=== PATIENT | female | born 1975 ===

== ENCOUNTER 2016-12-08 04:11 | Emergency (ER) | payer BC ==
[~2016-12-08] VITALS: Ht 175.3 cm; Wt 94.8 kg
[2016-12-08 04:15] VITALS: BP 140/79
[2016-12-08] MEDS ORDERED: TRANEXAMIC ACID 1,000 MG/10 ML VIAL. TOP ONE (05:30)
--- NOTE | 2016-12-08 06:14 | PHYS DOC ---
Past Medical History Past Medical History: Anemia, Fibromyalgia, Other Additional Past Medical Histor: polymyosis,thrombocytopenia,lymphedema, congenital asplenia,triple xsyndrome Past Surgical History: No Surgical History Alcohol Use: Occasionally Drug Use: None Adult General Chief Complaint Chief Complaint: DENTAL PROBLEM HPI HPI Patient is a 41 year old female who presents with bleeding after dental extraction. The patient states she had a tooth extraction yesterday by Dr. Willson. Reports onset of bleeding 3 hours prior to arrival. Tried applying vasoconstrictive strict of spray and biting down on teabags and applying pressure. Bleeding continued. She has history of lupus with thrombocytopenia, reports platelets usually 39. Denies any other bleeding at this time. Review of Systems Review of Systems Constitutional: Denies fever or chills HENT: Reports dental pain and bleeding. Respiratory: Denies cough or shortness of breath Cardiovascular: Denies chest pain GI: Denies abdominal pain, nausea, vomiting Musculoskeletal: Denies back pain or joint pain Integument: Denies rash Neurologic: Denies headache Current Medications Current Medications Current Medications Medications (Trade) Dose Ordered Sig/La Start Time Stop Time Status Last Admin Dose Admin Tranexamic Acid (Cyklokapron) 1,000 mg 1X ONCE 12/08/16 05:30 12/08/16 05:31 DC 12/08/16 05:29 1,000 MG Allergies Allergies Allergies Coded Allergies Type Severity Reaction Last Updated Verified [place] And Derivatives Allergy Intermediate 12/08/16 Yes NSAIDS (Non-Steroidal Anti-Inflamma Allergy Intermediate 12/08/16 Yes aspirin Allergy Intermediate 12/08/16 Yes bilberry Allergy Intermediate 12/08/16 Yes hydrocodone Allergy Intermediate 12/08/16 Yes hydroxychloroquine Allergy Intermediate 12/08/16 Yes ibuprofen Allergy Intermediate 12/08/16 Yes lisinopril Allergy Intermediate 12/08/16 Yes oregano Allergy Intermediate 12/08/16 Yes oxycodone Allergy Intermediate 12/08/16 Yes poppyseed oil Allergy Intermediate 12/08/16 Yes quinine Allergy Intermediate 12/08/16 Yes silver Allergy Intermediate 12/08/16 Yes tomato Allergy Intermediate 12/08/16 Yes walnut Allergy Intermediate 12/08/16 Yes Physical Exam Physical Exam Constitutional: Well developed, well nourished, no acute distress, non-toxic appearance. HENT: Normocephalic, atraumatic, bilateral external ears normal, oropharynx moist, nose normal. large amount of dried blood throughout the oropharynx. absence of tooth #3 with clot formation & small amount of ongoing bleeding. Eyes: conjunctiva normal, no discharge. Cardiovascular: no edema. Lungs & Thorax: no respiratory distress. Abdomen: nondistended. Skin: Warm, dry, no erythema, no rash. Extremities: No deformity Neurologic: Alert and oriented X 3 Current Patient Data Vital Signs Vital Signs Date Time Temp Pulse Resp B/P (MAP) Pulse Ox O2 Delivery O2 Flow Rate FiO2 12/08/16 04:15 97.7 70 18 98 Room Air 97.7 EKG EKG [] Radiology/Procedures Radiology/Procedures [] Course & Med Decision Making Course & Med Decision Making Pertinent Labs and Imaging studies reviewed. (See chart for details) The patient presents with bleeding after dental extraction. Applied tea bag without change in her symptoms. There was a delay in obtaining TXA from the pharmacy but ultimately the RN applied the entire syringe to gauze & held with direct pressure. Ultimately hemostasis was achieved. Her stay lasted several hours while we attempted to control the bleeding. I did discuss with Dr. Tuttle industrial relations officer for Dr. Willson, & he recommends that she be seen this morning in clinic. May arrive at 0745 to be seen at 0800. Okay to just pack with gauze if bleeding recurs before that time. Patient understands plan & is discharged in stable condition. [] Dragon Disclaimer Dragon Disclaimer This electronic medical record was generated, in whole or in part, using a voice recognition dictation system. Departure Departure Impression: Primary Impression: Surgical wound hemorrhage after dental procedure Disposition: 01 HOME, SELF-CARE Condition: STABLE Referrals: GERRY MACK MD (PCP) ARELY WILLSON Jr DDS Patient Instructions: Dental Pain, [id number] Additional Instructions: You seen in the emergency department today for dental bleeding. The bleeding was controlled here. Please go to Dr. Willson's office at 7:45 this morning to be seen in the clinic. NICHOLAS RAMIREZ MD Dec 08, 2016 06:14
== END 2016-12-08 06:50 | disposition home or self-care (01) ==
LOC: ER 04:11
DX: K91.840 Postprocedural hemorrhage of a digestive system organ or structure following a digestive system procedure (principal); M32.9 Systemic lupus erythematosus, unspecified; M79.7 Fibromyalgia; D69.6 Thrombocytopenia, unspecified; Z88.6 Allergy status to analgesic agent; Z88.5 Allergy status to narcotic agent; Z91.018 Allergy to other foods; Z88.8 Allergy status to other drugs, medicaments and biological substances; Z91.048 Other nonmedicinal substance allergy status; Y83.8 Other surgical procedures as the cause of abnormal reaction of the patient, or of later complication, without mention of misadventure at the time of the procedure; Y92.89 Other specified places as the place of occurrence of the external cause
CPT/HCPCS: 99283

== ENCOUNTER 2016-12-10 23:25 | Inpatient (IN) | payer BC ==
[~2016-12-10] VITALS: Ht 175.3 cm; Wt 95.7 kg
[2016-12-11] VITALS (8 sets, daily range): BP systolic 102–143; BP diastolic 52–69
[2016-12-11] MEDS ORDERED: IV NORMAL SALINE 1000ML BAG 1,000 ML IV ONE (01:00)
[2016-12-11 01:06] LABS: BASO # 0.1 x10^3/uL (0.0-0.2); BASO % 1 % (0-3); EOS % 3 % (0-3); HEMATOCRIT 27.5 % (36.0-47.0); LYMPH # 2.9 x10^3/uL (1.0-4.8); LYMPH % 48 % (24-48); MEAN CORPUSCULAR HEMOGLOBIN 33 pg (25-35); MEAN CORPUSCULAR HGB CONC 33 g/dL (31-37); MEAN CORPUSCULAR VOLUME 100 fL (79-100); MONO % 12 % (0-9); NEUT % 36 % (31-73); PLATELET COUNT 48 x10^3/uL (140-400); RED BLOOD COUNT 2.76 x10^6/uL (3.50-5.40)
[2016-12-11 01:13] LABS: INR 1.1 (0.8-1.1); PROTHROMBIN TIME PATIENT 13.4 SEC (11.7-14.0)
[2016-12-11 01:18] LABS: CALCIUM 10.8 mg/dL (8.5-10.1); GFR 60.5; POTASSIUM 3.3 mmol/L (3.5-5.1)
--- NOTE | 2016-12-11 03:14 | PHYS DOC ---
Past Medical History Past Medical History: Anemia, Fibromyalgia, Other Additional Past Medical Histor: polymyosis,thrombocytopenia,lymphedema, congenital asplenia,triple xsyndrome Past Surgical History: No Surgical History Alcohol Use: Occasionally Drug Use: None Adult General Chief Complaint Chief Complaint: DENTAL PROBLEM HPI HPI Patient is a 41 year old female who presents with complaint of postoperative bleeding. Patient states that she had a molar extraction 4 days ago. Patient has had intermittent bleeding from the site since her extraction. This was completed at [facility]. The patient has history of thrombocytopenia and states that her platelet counts are normally 30,000. Patient states that she has been applying pressure to the area which helps form a clot, however when she tries to drink anything she starts having rebleeding. Patient states that she is had decreased oral intake due to the bleeding. The patient does not currently follow with a front attendant. The patient came to the emergency department for evaluation and assistance with her bleeding. Patient denies any pain or swelling to the surgical site. Patient has had no associated fevers. Review of Systems Review of Systems Constitutional: Denies fever or chills [] Eyes: Denies change in visual acuity, redness, or eye pain [] HENT: Bleeding from tooth extraction site [] Respiratory: Denies cough or shortness of breath [] Cardiovascular: Denies chest pain or edema [] GI: Denies abdominal pain, nausea, vomiting, bloody stools or diarrhea [] : Denies dysuria or hematuria [] Musculoskeletal: Denies back pain or joint pain [] Integument: Denies rash or skin lesions [] Neurologic: Denies headache, focal weakness or sensory changes [] Current Medications Current Medications Current Medications Medications (Trade) Dose Ordered Sig/La Start Time Stop Time Status Last Admin Dose Admin Sodium Chloride 1,000 ml @ 1,000 mls/hr 1X ONCE 12/11/16 01:00 12/11/16 01:59 DC 12/11/16 00:54 1,000 MLS/HR Allergies Allergies Allergies Coded Allergies Type Severity Reaction Last Updated Verified [place] And Derivatives Allergy Intermediate 12/08/16 Yes NSAIDS (Non-Steroidal Anti-Inflamma Allergy Intermediate 12/08/16 Yes aspirin Allergy Intermediate 12/08/16 Yes bilberry Allergy Intermediate 12/08/16 Yes hydrocodone Allergy Intermediate 12/08/16 Yes hydroxychloroquine Allergy Intermediate 12/08/16 Yes ibuprofen Allergy Intermediate 12/08/16 Yes lisinopril Allergy Intermediate 12/08/16 Yes oregano Allergy Intermediate 12/08/16 Yes oxycodone Allergy Intermediate 12/08/16 Yes poppyseed oil Allergy Intermediate 12/08/16 Yes quinine Allergy Intermediate 12/08/16 Yes silver Allergy Intermediate 12/08/16 Yes tomato Allergy Intermediate 12/08/16 Yes walnut Allergy Intermediate 12/08/16 Yes Physical Exam Physical Exam Constitutional: Alert, afebrile, no acute distress. [] HENT: Normocephalic, atraumatic, bilateral external ears normal, clot formation present at extraction site of tooth #2, mild but persistent oozing present at extraction site, no oral exudates, nose normal. [] Eyes: PERRLA, EOMI, conjunctiva normal, no discharge. [] Neck: Normal range of motion, no tenderness, supple, no stridor. [] Cardiovascular:Heart rate regular rhythm, no murmur [] Lungs & Thorax: Bilateral breath sounds clear to auscultation [] Abdomen: Bowel sounds normal, soft, no tenderness, no masses, no pulsatile masses. [] Skin: Warm, dry, no erythema, no rash. [] Back: No tenderness, no CVA tenderness. [] Extremities: No tenderness, no cyanosis, no clubbing, ROM intact, no edema. [] Neurologic: Alert and oriented X 3, normal motor function, normal sensory function, no focal deficits noted. [] Current Patient Data Vital Signs Vital Signs Date Time Temp Pulse Resp B/P (MAP) Pulse Ox O2 Delivery O2 Flow Rate FiO2 12/11/16 02:00 70 17 122/60 (80) 91 Room Air 12/10/16 23:57 96.8 96.8 Lab Values Laboratory Tests Test 12/11/16 00:45 White Blood Count 6.0 x10^3/uL (4.0-11.0) Red Blood Count 2.76 x10^6/uL (3.50-5.40) L Hemoglobin 9.0 g/dL (12.0-15.5) L Hematocrit 27.5 % (36.0-47.0) L Mean Corpuscular Volume 100 fL (79-100) Mean Corpuscular Hemoglobin 33 pg (25-35) Mean Corpuscular Hemoglobin Concent 33 g/dL (31-37) Red Cell Distribution Width 22.0 % (11.5-14.5) H Platelet Count 48 x10^3/uL (140-400) L Neutrophils (%) (Auto) 36 % (31-73) Lymphocytes (%) (Auto) 48 % (24-48) Monocytes (%) (Auto) 12 % (0-9) H Eosinophils (%) (Auto) 3 % (0-3) Basophils (%) (Auto) 1 % (0-3) Neutrophils # (Auto) 2.2 x10^3uL (1.8-7.7) Lymphocytes # (Auto) 2.9 x10^3/uL (1.0-4.8) Monocytes # (Auto) 0.7 x10^3/uL (0.0-1.1) Eosinophils # (Auto) 0.2 x10^3/uL (0.0-0.7) Basophils # (Auto) 0.1 x10^3/uL (0.0-0.2) Platelet Estimate Decreased (ADEQUATE) Polychromasia Slight Anisocytosis Mod Target Cells Few Prothrombin Time 13.4 SEC (11.7-14.0) Prothrombin Time INR 1.1 (0.8-1.1) PTT 36 SEC (24-38) Sodium Level 144 mmol/L (136-145) Potassium Level 3.3 mmol/L (3.5-5.1) L Chloride Level 109 mmol/L (98-107) H Carbon Dioxide Level 26 mmol/L (21-32) Anion Gap 9 (6-14) Blood Urea Nitrogen 34 mg/dL (7-20) H Creatinine 1.0 mg/dL (0.6-1.0) Estimated GFR (Cockcroft-Gault) 60.5 Glucose Level 93 mg/dL (70-99) Calcium Level 10.8 mg/dL (8.5-10.1) H Laboratory Tests 12/11/16 00:45 Laboratory Tests 12/11/16 00:45 EKG EKG Not performed [] Radiology/Procedures Radiology/Procedures Not performed [] Course & Med Decision Making Course & Med Decision Making Pertinent Labs and Imaging studies reviewed. (See chart for details) The patient's platelet count was found to be 48,000. Due to presence of bleeding with low platelets, the patient will need transfusion of platelets to help stop her bleeding. We will admit the patient to the hospital for transfusion and to ensure resolution of bleeding after treatment. I spoke Dr. Christine who accepted care patient in hospital. A consult was placed to Dr. Pickett of hematology to follow patient in hospital. Dragon Disclaimer Dragon Disclaimer This electronic medical record was generated, in whole or in part, using a voice recognition dictation system. Departure Departure Impression: Primary Impression: Postoperative bleeding from mouth Additional Impression: Thrombocytopenia Disposition: ADMITTED INPATIENT Admitting Physician: Hakeem Christine Condition: STABLE Referrals: SUNSHINE OVIEDO (PCP) Problem Qualifiers RONAL MAXWELL MD Dec 11, 2016 03:14
[2016-12-11 04:26] LABS: PLT ESTIMATE DECREASED (ADEQUATE)
[2016-12-11 04:27] LABS: ANISOCYTOSIS MOD; POLYCHROMASIA SLIGHT; TARGET CELLS FEW
[2016-12-11] MEDS: IV NORMAL SALINE 1000ML BAG 1,000 ML IV SCH ×3 (04:43→21:04)
[2016-12-11] MEDS ORDERED: MAGN400C PO (06:37)
[2016-12-11] MEDS ORDERED: ACET-704 PO (06:37)
[2016-12-11] MEDS ORDERED: PRAS25CA PO (06:37)
[2016-12-11] MEDS ORDERED: CYCL10TA2 PO (06:37)
[2016-12-11] MEDS ORDERED: CHOL2000 PO (06:37)
[2016-12-11] MEDS ORDERED: BUME2TAB PO (06:37)
[2016-12-11] MEDS ORDERED: PRED-220 PO (06:37)
[2016-12-11] MEDS ORDERED: POTA20TA82 PO (06:37)
[2016-12-11] MEDS ORDERED: SENN-79 PO (06:37)
[2016-12-11] MEDS ORDERED: ONDANSETRON PF 4 MG/2 ML VIAL. IV PRN (07:30)
--- NOTE | 2016-12-11 10:31 | PDOC2 ---
CONSULT Date of Consult Date of Consult DATE: 12/11/16 TIME: 10:19 Reason for Consult Reason for Consult: Thrombocytopenia Referring Physician Referring Physician: ER Identification/Chief Complaint Chief Complaint Thrombocytopenia Problems: Source Source: Chart review, Patient History of Present Illness Reason for Visit: 41 y/o with complicated medical history including triple x syndrome and congenital asplenia - this was dx over a decade ago when she had low plts and extensive w/u and marrow Also had collagen vascular dz and on multiple meds Her plts have run in the 30's of late. Also notes h/o DIC but sounds like that was during hospitalization for RMSF or Strep Current issue relates to recent Dental extraction done December 07 - has been bleeding since and had ER visit that day but was not transfused but presented to [facility] ER 12/10 and plts were 48 but admitted and given plts It has slowed up, but will ooze if talks or drinks She chronically bruises easily as well, but no other bleeding Past Medical History Past Medical History Extensive with CVD, fibromyalgia, triple x and congenital asplenia Family History Family History no fam history of any heme issues Social History No ALCOHOL: none Current Problem List Problem List Problems Medical Problems: (1) Postoperative bleeding from mouth Status: Acute (2) Thrombocytopenia Status: Acute Current Medications Current Medications Current Medications Sodium Chloride 1,000 ml @ 1,000 mls/hr 1X ONCE IV Last administered on 00:54; Start 12/11/16 at 01:00; Stop 12/11/16 at 01:59; Status DC Sodium Chloride 1,000 ml @ 125 mls/hr Q8H IV Last administered on 12/11/16 04: 43; Start 12/11/16 at 03:12; Stop 12/12/16 at 03:11 Acetaminophen (Tylenol) 650 mg PRN Q4HRS PRN PO FEVER; Start 12/11/16 at 03:15; Stop 12/12/16 at 03:14 Ondansetron HCl (Zofran) 4 mg PRN Q6HRS PRN IV NAUSEA/VOMITING Last administered on 12/11/16 09:24; Start 12/11/16 at 07:30 Active Scripts Active Reported Dhea (Prasterone (Dhea)) 25 Mg Capsule 25 Mg PO Magnesium (Magnesium Oxide) 400 Mg Capsule 1 Cap PO DAILY Senna (Sennosides) 8.6 Mg Tablet 8.6 Mg PO BID Vitamin D (Cholecalciferol (Vitamin D3)) 2,000 Unit Capsule 1 Cap PO DAILY Bumetanide 2 Mg Tablet 1 Tab PO DAILY Prednisone 10 Mg Tablet 10 Mg PO DAILY Cyclobenzaprine Hcl 10 Mg Tablet 1 Tab PO TID PRN PRN Potassium Chloride 20 Meq Tablet.er 40 Meq PO DAILY Tylenol With Codeine #3 Tablet (Acetaminophen/Codeine Phosphate) 1 Each Tablet 1 Tab PO PRN Q8HRS PRN Allergies Allergies: Coded Allergies: [place] And Derivatives (Verified Allergy, Intermediate, 12/08/16) NSAIDS (Non-Steroidal Anti-Inflamma (Verified Allergy, Intermediate, ) aspirin (Verified Allergy, Intermediate, 12/08/16) bilberry (Verified Allergy, Intermediate, 12/08/16) hydrocodone (Verified Allergy, Intermediate, 12/08/16) hydroxychloroquine (Verified Allergy, Intermediate, 12/08/16) ibuprofen (Verified Allergy, Intermediate, 12/08/16) lisinopril (Verified Allergy, Intermediate, 12/08/16) oregano (Verified Allergy, Intermediate, 12/08/16) OIL OF [place] oxycodone (Verified Allergy, Intermediate, 12/08/16) poppyseed oil (Verified Allergy, Intermediate, 12/08/16) quinine (Verified Allergy, Intermediate, 12/08/16) silver (Verified Allergy, Intermediate, 12/08/16) tomato (Verified Allergy, Intermediate, 12/08/16) walnut (Verified Allergy, Intermediate, 12/08/16) ROS Review of System 12 point review of systems negative aside from what is noted above Physical Exam General: Alert, Oriented X3, Cooperative HEENT: Atraumatic, PERRLA, Mucous membr. moist/pink, Other (her right upper molar area has large clot over it - not actively bleeding) Lungs: Clear to auscultation Heart: Regular rate, Other (has murmur) Abdomen: Normal bowel sounds, Soft, No tenderness, No hepatosplenomegaly, No masses Extremities: No edema Skin: Other (has diffuse ecchymosis on legs) Neuro: Normal speech, Normal tone, Cranial nerves 3-12 NL MUSCULOSKELETAL: No swelling Vitals VITALS Vital Signs Date Time Temp Pulse Resp B/P (MAP) Pulse Ox O2 Delivery O2 Flow Rate FiO2 7/9/17 08:03 Room Air 12/11/16 07:00 98.3 89 18 143/67 (92) 94 98.3 Labs Labs Laboratory Tests Test 12/11/16 00:45 White Blood Count 6.0 x10^3/uL (4.0-11.0) Red Blood Count 2.76 x10^6/uL (3.50-5.40) Hemoglobin 9.0 g/dL (12.0-15.5) Hematocrit 27.5 % (36.0-47.0) Mean Corpuscular Volume 100 fL (79-100) Mean Corpuscular Hemoglobin 33 pg (25-35) Mean Corpuscular Hemoglobin Concent 33 g/dL (31-37) Red Cell Distribution Width 22.0 % (11.5-14.5) Platelet Count 48 x10^3/uL (140-400) Neutrophils (%) (Auto) 36 % (31-73) Lymphocytes (%) (Auto) 48 % (24-48) Monocytes (%) (Auto) 12 % (0-9) Eosinophils (%) (Auto) 3 % (0-3) Basophils (%) (Auto) 1 % (0-3) Neutrophils # (Auto) 2.2 x10^3uL (1.8-7.7) Lymphocytes # (Auto) 2.9 x10^3/uL (1.0-4.8) Monocytes # (Auto) 0.7 x10^3/uL (0.0-1.1) Eosinophils # (Auto) 0.2 x10^3/uL (0.0-0.7) Basophils # (Auto) 0.1 x10^3/uL (0.0-0.2) Platelet Estimate Decreased (ADEQUATE) Polychromasia Slight Anisocytosis Mod Target Cells Few Prothrombin Time 13.4 SEC (11.7-14.0) Prothromb Time International Ratio 1.1 (0.8-1.1) Activated Partial Thromboplast Time 36 SEC (24-38) Sodium Level 144 mmol/L (136-145) Potassium Level 3.3 mmol/L (3.5-5.1) Chloride Level 109 mmol/L (98-107) Carbon Dioxide Level 26 mmol/L (21-32) Anion Gap 9 (6-14) Blood Urea Nitrogen 34 mg/dL (7-20) Creatinine 1.0 mg/dL (0.6-1.0) Estimated GFR (Cockcroft-Gault) 60.5 Glucose Level 93 mg/dL (70-99) Calcium Level 10.8 mg/dL (8.5-10.1) Laboratory Tests Test 12/11/16 00:45 White Blood Count 6.0 x10^3/uL (4.0-11.0) Red Blood Count 2.76 x10^6/uL (3.50-5.40) Hemoglobin 9.0 g/dL (12.0-15.5) Hematocrit 27.5 % (36.0-47.0) Mean Corpuscular Volume 100 fL (79-100) Mean Corpuscular Hemoglobin 33 pg (25-35) Mean Corpuscular Hemoglobin Concent 33 g/dL (31-37) Red Cell Distribution Width 22.0 % (11.5-14.5) Platelet Count 48 x10^3/uL (140-400) Neutrophils (%) (Auto) 36 % (31-73) Lymphocytes (%) (Auto) 48 % (24-48) Monocytes (%) (Auto) 12 % (0-9) Eosinophils (%) (Auto) 3 % (0-3) Basophils (%) (Auto) 1 % (0-3) Neutrophils # (Auto) 2.2 x10^3uL (1.8-7.7) Lymphocytes # (Auto) 2.9 x10^3/uL (1.0-4.8) Monocytes # (Auto) 0.7 x10^3/uL (0.0-1.1) Eosinophils # (Auto) 0.2 x10^3/uL (0.0-0.7) Basophils # (Auto) 0.1 x10^3/uL (0.0-0.2) Platelet Estimate Decreased (ADEQUATE) Polychromasia Slight Anisocytosis Mod Target Cells Few Prothrombin Time 13.4 SEC (11.7-14.0) Prothromb Time International Ratio 1.1 (0.8-1.1) Activated Partial Thromboplast Time 36 SEC (24-38) Sodium Level 144 mmol/L (136-145) Potassium Level 3.3 mmol/L (3.5-5.1) Chloride Level 109 mmol/L (98-107) Carbon Dioxide Level 26 mmol/L (21-32) Anion Gap 9 (6-14) Blood Urea Nitrogen 34 mg/dL (7-20) Creatinine 1.0 mg/dL (0.6-1.0) Estimated GFR (Cockcroft-Gault) 60.5 Glucose Level 93 mg/dL (70-99) Calcium Level 10.8 mg/dL (8.5-10.1) Assessment/Plan Assessment/Plan 1. Chronic thrombcytopenia - as I recall this is mostly related to her underlying triple x syndrome She presented with plts 48 which is good for her, but agree with the transfusion that was done and would transfuse if there is further bleeding I would let her drink and eat soft things now to see if that will flare I do not think there is any other rx to try to raise plts her current coags are normal Would recheck cbc in the am - appears it is ordered 2. As far as her CVD, do not have any other input at present - I do not think her plts are low due to this, but more likely congenitally low from the underlying genetic syndrome. TREVIN MACHADO MD Dec 11, 2016 10:31
[2016-12-11] MEDS: ACETAMINOPHEN 325 MG TABLET. PO PRN (10:38)
--- NOTE | 2016-12-11 12:30 | PDOC1 ---
History and Physical Date of Admission Date of Admission DATE: 12/11/16 TIME: 12:26 History of Present Illness History of Present Illness Past Medical History: Anemia, Fibromyalgia, Other Additional Past Medical Histor: polymyosis,thrombocytopenia,lymphedema, congenital asplenia,triple xsyndrome Past Surgical History: No Surgical History HPI Patient is a 41 year old female who presents with complaint of postoperative bleeding. Patient states that she had a molar extraction 4 days ago. Patient has had intermittent bleeding from the site since her extraction. This was completed at [facility]. The patient has history of thrombocytopenia and states that her platelet counts are normally 30,000. Patient states that she has been applying pressure to the area which helps form a clot, however when she tries to drink anything she starts having rebleeding. Patient states that she is had decreased oral intake due to the bleeding. The patient does not currently follow with a trade facilitator. The patient came to the emergency department for evaluation and assistance with her bleeding. Patient denies any pain or swelling to the surgical site. Patient has had no associated fevers. Past Medical History: Anemia, Fibromyalgia, Other Additional Past Medical Histor: polymyosis,thrombocytopenia,lymphedema, congenital asplenia,triple xsyndrome Past Surgical History: No Surgical History Alcohol Use: Occasionally Drug Use: None Pt seen and examined Dw and RN and Er Doc Labs reviewd Chart reviewed Will consult Heme Onc Follow labs Dictation still broken Total time 32 minutes Social History Smoke: No ALCOHOL: none Current Problem List Problem List Problems Medical Problems: (1) Postoperative bleeding from mouth Status: Acute (2) Thrombocytopenia Status: Acute Problems: Current Medications Current Medications Current Medications Sodium Chloride 1,000 ml @ 1,000 mls/hr 1X ONCE IV Last administered on 00:54; Start 12/11/16 at 01:00; Stop 12/11/16 at 01:59; Status DC Sodium Chloride 1,000 ml @ 125 mls/hr Q8H IV Last administered on 12/11/16 10: 38; Start 12/11/16 at 03:12; Stop 12/12/16 at 03:11 Acetaminophen (Tylenol) 650 mg PRN Q4HRS PRN PO FEVER Last administered on 10:38; Start 12/11/16 at 03:15; Stop 12/12/16 at 03:14 Ondansetron HCl (Zofran) 4 mg PRN Q6HRS PRN IV NAUSEA/VOMITING Last administered on 12/11/16t 09:24; Start 12/11/16 at 07:30 Active Scripts Active Reported Dhea (Prasterone (Dhea)) 25 Mg Capsule 25 Mg PO Magnesium (Magnesium Oxide) 400 Mg Capsule 1 Cap PO DAILY Senna (Sennosides) 8.6 Mg Tablet 8.6 Mg PO BID Vitamin D (Cholecalciferol (Vitamin D3)) 2,000 Unit Capsule 1 Cap PO DAILY Bumetanide 2 Mg Tablet 1 Tab PO DAILY Prednisone 10 Mg Tablet 10 Mg PO DAILY Cyclobenzaprine Hcl 10 Mg Tablet 1 Tab PO TID PRN PRN Potassium Chloride 20 Meq Tablet.er 40 Meq PO DAILY Tylenol With Codeine #3 Tablet (Acetaminophen/Codeine Phosphate) 1 Each Tablet 1 Tab PO PRN Q8HRS PRN Allergies Allergies: Coded Allergies: [place] And Derivatives (Verified Allergy, Intermediate, 12/08/16) NSAIDS (Non-Steroidal Anti-Inflamma (Verified Allergy, Intermediate, ) aspirin (Verified Allergy, Intermediate, 12/08/16) bilberry (Verified Allergy, Intermediate, 12/08/16) hydrocodone (Verified Allergy, Intermediate, 12/08/16) hydroxychloroquine (Verified Allergy, Intermediate, 12/08/16) ibuprofen (Verified Allergy, Intermediate, 12/08/16) lisinopril (Verified Allergy, Intermediate, 12/08/16) oregano (Verified Allergy, Intermediate, 12/08/16) OIL OF [place] oxycodone (Verified Allergy, Intermediate, 12/08/16) poppyseed oil (Verified Allergy, Intermediate, 12/08/16) quinine (Verified Allergy, Intermediate, 12/08/16) silver (Verified Allergy, Intermediate, 12/08/16) tomato (Verified Allergy, Intermediate, 12/08/16) walnut (Verified Allergy, Intermediate, 12/08/16) Vitals Vitals Vital Signs Date Time Temp Pulse Resp B/P (MAP) Pulse Ox O2 Delivery O2 Flow Rate FiO2 12/11/16 10:57 97.8 88 18 133/66 (88) 93 Room Air 97.8 Labs Labs Laboratory Tests Test 12/11/16 00:45 White Blood Count 6.0 x10^3/uL (4.0-11.0) Red Blood Count 2.76 x10^6/uL (3.50-5.40) Hemoglobin 9.0 g/dL (12.0-15.5) Hematocrit 27.5 % (36.0-47.0) Mean Corpuscular Volume 100 fL (79-100) Mean Corpuscular Hemoglobin 33 pg (25-35) Mean Corpuscular Hemoglobin Concent 33 g/dL (31-37) Red Cell Distribution Width 22.0 % (11.5-14.5) Platelet Count 48 x10^3/uL (140-400) Neutrophils (%) (Auto) 36 % (31-73) Lymphocytes (%) (Auto) 48 % (24-48) Monocytes (%) (Auto) 12 % (0-9) Eosinophils (%) (Auto) 3 % (0-3) Basophils (%) (Auto) 1 % (0-3) Neutrophils # (Auto) 2.2 x10^3uL (1.8-7.7) Lymphocytes # (Auto) 2.9 x10^3/uL (1.0-4.8) Monocytes # (Auto) 0.7 x10^3/uL (0.0-1.1) Eosinophils # (Auto) 0.2 x10^3/uL (0.0-0.7) Basophils # (Auto) 0.1 x10^3/uL (0.0-0.2) Platelet Estimate Decreased (ADEQUATE) Polychromasia Slight Anisocytosis Mod Target Cells Few Prothrombin Time 13.4 SEC (11.7-14.0) Prothromb Time International Ratio 1.1 (0.8-1.1) Activated Partial Thromboplast Time 36 SEC (24-38) Sodium Level 144 mmol/L (136-145) Potassium Level 3.3 mmol/L (3.5-5.1) Chloride Level 109 mmol/L (98-107) Carbon Dioxide Level 26 mmol/L (21-32) Anion Gap 9 (6-14) Blood Urea Nitrogen 34 mg/dL (7-20) Creatinine 1.0 mg/dL (0.6-1.0) Estimated GFR (Cockcroft-Gault) 60.5 Glucose Level 93 mg/dL (70-99) Calcium Level 10.8 mg/dL (8.5-10.1) Laboratory Tests Test 12/11/16 00:45 White Blood Count 6.0 x10^3/uL (4.0-11.0) Red Blood Count 2.76 x10^6/uL (3.50-5.40) Hemoglobin 9.0 g/dL (12.0-15.5) Hematocrit 27.5 % (36.0-47.0) Mean Corpuscular Volume 100 fL (79-100) Mean Corpuscular Hemoglobin 33 pg (25-35) Mean Corpuscular Hemoglobin Concent 33 g/dL (31-37) Red Cell Distribution Width 22.0 % (11.5-14.5) Platelet Count 48 x10^3/uL (140-400) Neutrophils (%) (Auto) 36 % (31-73) Lymphocytes (%) (Auto) 48 % (24-48) Monocytes (%) (Auto) 12 % (0-9) Eosinophils (%) (Auto) 3 % (0-3) Basophils (%) (Auto) 1 % (0-3) Neutrophils # (Auto) 2.2 x10^3uL (1.8-7.7) Lymphocytes # (Auto) 2.9 x10^3/uL (1.0-4.8) Monocytes # (Auto) 0.7 x10^3/uL (0.0-1.1) Eosinophils # (Auto) 0.2 x10^3/uL (0.0-0.7) Basophils # (Auto) 0.1 x10^3/uL (0.0-0.2) Platelet Estimate Decreased (ADEQUATE) Polychromasia Slight Anisocytosis Mod Target Cells Few Prothrombin Time 13.4 SEC (11.7-14.0) Prothromb Time International Ratio 1.1 (0.8-1.1) Activated Partial Thromboplast Time 36 SEC (24-38) Sodium Level 144 mmol/L (136-145) Potassium Level 3.3 mmol/L (3.5-5.1) Chloride Level 109 mmol/L (98-107) Carbon Dioxide Level 26 mmol/L (21-32) Anion Gap 9 (6-14) Blood Urea Nitrogen 34 mg/dL (7-20) Creatinine 1.0 mg/dL (0.6-1.0) Estimated GFR (Cockcroft-Gault) 60.5 Glucose Level 93 mg/dL (70-99) Calcium Level 10.8 mg/dL (8.5-10.1) VTE Prophylaxis Ordered VTE Prophylaxis Devices: Yes VTE Pharmacological Prophylaxi: Yes TYE NAVA III, DO Dec 11, 2016 12:30
[2016-12-11] MEDS ORDERED: CYCLOBENZAPRINE 10 MG TABLET. PO PRN (12:45)
[2016-12-11] MEDS ORDERED: BUMETANIDE 1 MG TABLET. PO SCH (13:00)
[2016-12-11] MEDS: POTASSIUM CHLORIDE 20 MEQ TABLET.ER. PO SCH (13:00)
[2016-12-11] MEDS: predniSONE 10 MG TABLET PO SCH (16:16)
[2016-12-11] MEDS: MAGNESIUM OXIDE 400 MG TABLET PO SCH (16:16)
[2016-12-11] MEDS: CHOLECALCIFEROL (VITAMIN D3) 1,000 UNIT TABLET PO SCH (16:19)
[2016-12-11] MEDS: ACETAMINOPHEN/CODEINE 300/30MG TABLET. PO PRN (21:04)
[2016-12-11] MEDS: SENNOSIDES 8.6 MG TABLET PO SCH (21:05)
[2016-12-12] VITALS (12 sets, daily range): BP systolic 117–140; BP diastolic 46–79
[2016-12-12] MEDS: ACETAMINOPHEN 325 MG TABLET. PO PRN (00:50)
[2016-12-12 06:18] LABS: BASO % 1 % (0-3); EOS % 1 % (0-3); LYMPH # 1.9 x10^3/uL (1.0-4.8); LYMPH % 37 % (24-48); MEAN CORPUSCULAR HEMOGLOBIN 33 pg (25-35); MEAN CORPUSCULAR HGB CONC 33 g/dL (31-37); MEAN CORPUSCULAR VOLUME 101 fL (79-100); MONO % 17 % (0-9); NEUT % 44 % (31-73); PLATELET COUNT 67 x10^3/uL (140-400); RED BLOOD COUNT 1.88 x10^6/uL (3.50-5.40); WHITE BLOOD COUNT 5.2 x10^3/uL (4.0-11.0)
[2016-12-12 06:30] LABS: HEMOGLOBIN 6.2 g/dL (12.0-15.5)
[2016-12-12 06:34] LABS: ALBUMIN 2.2 g/dL (3.4-5.0); ALBUMIN/GLOBULIN RATIO 0.7 (1.0-1.7); CALCIUM 9.2 mg/dL (8.5-10.1); CREATININE 0.8 mg/dL (0.6-1.0); GFR 78.3; POTASSIUM 3.9 mmol/L (3.5-5.1); TOTAL BILIRUBIN 0.8 mg/dL (0.2-1.0); TOTAL PROTEIN 5.3 g/dL (6.4-8.2)
[2016-12-12 08:17] LABS: INR 1.2 (0.8-1.1); PROTHROMBIN TIME PATIENT 14.3 SEC (11.7-14.0)
[2016-12-12] MEDS: AMINOCAPROIC ACID 500 MG TABLET. PO SCH ×4 (08:30→23:46)
[2016-12-12] MEDS: POTASSIUM CHLORIDE 20 MEQ TABLET.ER. PO SCH (08:31)
[2016-12-12] MEDS: MAGNESIUM OXIDE 400 MG TABLET PO SCH (08:31)
[2016-12-12] MEDS: predniSONE 10 MG TABLET PO SCH (08:31)
[2016-12-12] MEDS: SENNOSIDES 8.6 MG TABLET PO SCH ×2 (08:31→21:04)
[2016-12-12] MEDS: CHOLECALCIFEROL (VITAMIN D3) 1,000 UNIT TABLET PO SCH (08:31)
[2016-12-12] MEDS: BUMETANIDE 1 MG TABLET. PO SCH (08:31)
[2016-12-12] MEDS: ACETAMINOPHEN/CODEINE 300/30MG TABLET. PO PRN ×2 (08:39→22:53)
--- NOTE | 2016-12-12 08:49 | PDOC ---
Subjective: Subjective: Onc f/u- thrombocytopenia Pt without obvious bleeding in mouth, stool, urine, nose despite hgb 9.0 --> 6.2 Chronic bruising on legs unchanged Objective: Vital Signs: Vital Signs Date Time Temp Pulse Resp B/P (MAP) Pulse Ox O2 Delivery O2 Flow Rate FiO2 12/12/16 08:39 Room Air 12/12/16 07:13 98.1 66 18 120/57 (78) 100 98.1 Physical Exam: Heart: Regular rate Extremities: No edema General: Alert, Oriented X3, Cooperative, No acute distress Lungs: Other (no respiratory distress) Psych/Mental Status: Mental status NL, Mood NL Skin: Other (chronic bruises on bilateral LE, none new) Labs/Imaging: INR 1.2 Hgb 9.0 --> 6.2 Plt 42 --> 67 Assessment/Plan A/P: 1. Chronic thrombocytopenia (baseline 40- 70), normocytic anemia (hgb ~ 9) since at least 2008, first last labs I can see in [facility] system Reportedly had extensive eval with Dr. Maradiaga 14+ years ago, attributing cause to triple X syndrome, reports this has been present since Chronic lupus could also contribute Generally asymptomatic 2. Tooth extraction a few days ago, worsening anemia today Transfused plt 12/11 No obvious bleeding clinically now Plan: 1. PRBC ordered today, repeat CBC tomorrow planned 2. Amicar ordered today in case any mucosal bleeding contributing to worsening anemia; will DC tomorrow if hgb improved 3. Recommended visit with Dr. Maradiaga in future preoperatively. Generally would recommend plt > 50 for any procedures, sometimes higher depending on procedure. May need outpt plt transfusions preoperatively and consideration of amicar, other ppx measures to avoid ongoing bleeding. ADEOLA BENITO DO Dec 12, 2016 08:49
[2016-12-12] MEDS ORDERED: POTASSIUM CHLORIDE 20 MEQ TABLET.ER. PO ONE (11:45)
[2016-12-12] MEDS ORDERED: ACETAMINOPHEN 500 MG TABLET PO ONE (13:00)
[2016-12-12 14:02] LABS: HEMATOCRIT 24.1 % (36.0-47.0); HEMOGLOBIN 8.1 g/dL (12.0-15.5)
--- NOTE | 2016-12-12 15:22 | PDOC ---
PROGRESS NOTES Chief Complaint Chief Complaint acute blood loss anemia 1. Chronic thrombocytopenia (baseline 40- 70), normocytic anemia (hgb ~ 9) 2, XXX syndrome 3. fibromyalgia and lupus 4. Tooth extraction a few days ago, worsening anemia today History of Present Illness History of Present Illness Transfused plt 12/11 No obvious bleeding clinically now hgb drop, PRBC to be given today, recheck full labs in AM, plan dc tomorrow Vitals Vitals Vital Signs Date Time Temp Pulse Resp B/P (MAP) Pulse Ox O2 Delivery O2 Flow Rate FiO2 12/12/16 13:30 98.4 63 16 121/60 98.4 12/12/16 12:25 96 Room Air Physical Exam General: Alert, Oriented X3, Cooperative, No acute distress Heart: Regular rate Lungs: Clear Abdomen: Normal bowel sounds, Soft, No tenderness, No hepatosplenomegaly, No masses Extremities: No edema Skin: No rashes, Other (chronic bruises on bilateral LE, none new) Labs LABS Laboratory Tests Test 12/12/16 06:12 12/12/16 07:55 12/12/16 13:50 White Blood Count 5.2 x10^3/uL (4.0-11.0) Red Blood Count 1.88 x10^6/uL (3.50-5.40) Hemoglobin 6.2 g/dL (12.0-15.5) 8.1 g/dL (12.0-15.5) Hematocrit 19.0 % (36.0-47.0) 24.1 % (36.0-47.0) Mean Corpuscular Volume 101 fL (79-100) Mean Corpuscular Hemoglobin 33 pg (25-35) Mean Corpuscular Hemoglobin Concent 33 g/dL (31-37) 34 g/dL (31-37) Red Cell Distribution Width 22.0 % (11.5-14.5) Platelet Count 67 x10^3/uL (140-400) Neutrophils (%) (Auto) 44 % (31-73) Lymphocytes (%) (Auto) 37 % (24-48) Monocytes (%) (Auto) 17 % (0-9) Eosinophils (%) (Auto) 1 % (0-3) Basophils (%) (Auto) 1 % (0-3) Neutrophils # (Auto) 2.3 x10^3uL (1.8-7.7) Lymphocytes # (Auto) 1.9 x10^3/uL (1.0-4.8) Monocytes # (Auto) 0.9 x10^3/uL (0.0-1.1) Eosinophils # (Auto) 0.1 x10^3/uL (0.0-0.7) Basophils # (Auto) 0.0 x10^3/uL (0.0-0.2) Sodium Level 143 mmol/L (136-145) Potassium Level 3.9 mmol/L (3.5-5.1) Chloride Level 111 mmol/L (98-107) Carbon Dioxide Level 24 mmol/L (21-32) Anion Gap 8 (6-14) Blood Urea Nitrogen 16 mg/dL (7-20) Creatinine 0.8 mg/dL (0.6-1.0) Estimated GFR (Cockcroft-Gault) 78.3 BUN/Creatinine Ratio 20 (6-20) Glucose Level 82 mg/dL (70-99) Calcium Level 9.2 mg/dL (8.5-10.1) Total Bilirubin 0.8 mg/dL (0.2-1.0) Aspartate Amino Transf (AST/SGOT) 24 U/L (15-37) Alanine Aminotransferase (ALT/SGPT) 22 U/L (14-59) Alkaline Phosphatase 59 U/L (46-116) Total Protein 5.3 g/dL (6.4-8.2) Albumin 2.2 g/dL (3.4-5.0) Albumin/Globulin Ratio 0.7 (1.0-1.7) Prothrombin Time 14.3 SEC (11.7-14.0) Prothromb Time International Ratio 1.2 (0.8-1.1) Assessment and Plan Assessmemt and Plan Problems Medical Problems: (1) Postoperative bleeding from mouth Status: Acute (2) Thrombocytopenia Status: Acute Problems: Comment Review of Relevant I have reviewed the following items ortega (where applicable) has been applied. Labs Laboratory Tests Test 12/11/16 00:45 12/12/16 06:12 12/12/16 07:55 12/12/16 13:50 White Blood Count 6.0 x10^3/uL (4.0-11.0) 5.2 x10^3/uL (4.0-11.0) Red Blood Count 2.76 x10^6/uL (3.50-5.40) 1.88 x10^6/uL (3.50-5.40) Hemoglobin 9.0 g/dL (12.0-15.5) 6.2 g/dL (12.0-15.5) 8.1 g/dL (12.0-15.5) Hematocrit 27.5 % (36.0-47.0) 19.0 % (36.0-47.0) 24.1 % (36.0-47.0) Mean Corpuscular Volume 100 fL (79-100) 101 fL (79-100) Mean Corpuscular Hemoglobin 33 pg (25-35) 33 pg (25-35) Mean Corpuscular Hemoglobin Concent 33 g/dL (31-37) 33 g/dL (31-37) 34 g/dL (31-37) Red Cell Distribution Width 22.0 % (11.5-14.5) 22.0 % (11.5-14.5) Platelet Count 48 x10^3/uL (140-400) 67 x10^3/uL (140-400) Neutrophils (%) (Auto) 36 % (31-73) 44 % (31-73) Lymphocytes (%) (Auto) 48 % (24-48) 37 % (24-48) Monocytes (%) (Auto) 12 % (0-9) 17 % (0-9) Eosinophils (%) (Auto) 3 % (0-3) 1 % (0-3) Basophils (%) (Auto) 1 % (0-3) 1 % (0-3) Neutrophils # (Auto) 2.2 x10^3uL (1.8-7.7) 2.3 x10^3uL (1.8-7.7) Lymphocytes # (Auto) 2.9 x10^3/uL (1.0-4.8) 1.9 x10^3/uL (1.0-4.8) Monocytes # (Auto) 0.7 x10^3/uL (0.0-1.1) 0.9 x10^3/uL (0.0-1.1) Eosinophils # (Auto) 0.2 x10^3/uL (0.0-0.7) 0.1 x10^3/uL (0.0-0.7) Basophils # (Auto) 0.1 x10^3/uL (0.0-0.2) 0.0 x10^3/uL (0.0-0.2) Platelet Estimate Decreased (ADEQUATE) Polychromasia Slight Anisocytosis Mod Target Cells Few Prothrombin Time 13.4 SEC (11.7-14.0) 14.3 SEC (11.7-14.0) Prothromb Time International Ratio 1.1 (0.8-1.1) 1.2 (0.8-1.1) Activated Partial Thromboplast Time 36 SEC (24-38) Sodium Level 144 mmol/L (136-145) 143 mmol/L (136-145) Potassium Level 3.3 mmol/L (3.5-5.1) 3.9 mmol/L (3.5-5.1) Chloride Level 109 mmol/L (98-107) 111 mmol/L (98-107) Carbon Dioxide Level 26 mmol/L (21-32) 24 mmol/L (21-32) Anion Gap 9 (6-14) 8 (6-14) Blood Urea Nitrogen 34 mg/dL (7-20) 16 mg/dL (7-20) Creatinine 1.0 mg/dL (0.6-1.0) 0.8 mg/dL (0.6-1.0) Estimated GFR (Cockcroft-Gault) 60.5 78.3 Glucose Level 93 mg/dL (70-99) 82 mg/dL (70-99) Calcium Level 10.8 mg/dL (8.5-10.1) 9.2 mg/dL (8.5-10.1) BUN/Creatinine Ratio 20 (6-20) Total Bilirubin 0.8 mg/dL (0.2-1.0) Aspartate Amino Transf (AST/SGOT) 24 U/L (15-37) Alanine Aminotransferase (ALT/SGPT) 22 U/L (14-59) Alkaline Phosphatase 59 U/L (46-116) Total Protein 5.3 g/dL (6.4-8.2) Albumin 2.2 g/dL (3.4-5.0) Albumin/Globulin Ratio 0.7 (1.0-1.7) Laboratory Tests Test 12/12/16 06:12 12/12/16 07:55 12/12/16 13:50 White Blood Count 5.2 x10^3/uL (4.0-11.0) Red Blood Count 1.88 x10^6/uL (3.50-5.40) Hemoglobin 6.2 g/dL (12.0-15.5) 8.1 g/dL (12.0-15.5) Hematocrit 19.0 % (36.0-47.0) 24.1 % (36.0-47.0) Mean Corpuscular Volume 101 fL (79-100) Mean Corpuscular Hemoglobin 33 pg (25-35) Mean Corpuscular Hemoglobin Concent 33 g/dL (31-37) 34 g/dL (31-37) Red Cell Distribution Width 22.0 % (11.5-14.5) Platelet Count 67 x10^3/uL (140-400) Neutrophils (%) (Auto) 44 % (31-73) Lymphocytes (%) (Auto) 37 % (24-48) Monocytes (%) (Auto) 17 % (0-9) Eosinophils (%) (Auto) 1 % (0-3) Basophils (%) (Auto) 1 % (0-3) Neutrophils # (Auto) 2.3 x10^3uL (1.8-7.7) Lymphocytes # (Auto) 1.9 x10^3/uL (1.0-4.8) Monocytes # (Auto) 0.9 x10^3/uL (0.0-1.1) Eosinophils # (Auto) 0.1 x10^3/uL (0.0-0.7) Basophils # (Auto) 0.0 x10^3/uL (0.0-0.2) Sodium Level 143 mmol/L (136-145) Potassium Level 3.9 mmol/L (3.5-5.1) Chloride Level 111 mmol/L (98-107) Carbon Dioxide Level 24 mmol/L (21-32) Anion Gap 8 (6-14) Blood Urea Nitrogen 16 mg/dL (7-20) Creatinine 0.8 mg/dL (0.6-1.0) Estimated GFR (Cockcroft-Gault) 78.3 BUN/Creatinine Ratio 20 (6-20) Glucose Level 82 mg/dL (70-99) Calcium Level 9.2 mg/dL (8.5-10.1) Total Bilirubin 0.8 mg/dL (0.2-1.0) Aspartate Amino Transf (AST/SGOT) 24 U/L (15-37) Alanine Aminotransferase (ALT/SGPT) 22 U/L (14-59) Alkaline Phosphatase 59 U/L (46-116) Total Protein 5.3 g/dL (6.4-8.2) Albumin 2.2 g/dL (3.4-5.0) Albumin/Globulin Ratio 0.7 (1.0-1.7) Prothrombin Time 14.3 SEC (11.7-14.0) Prothromb Time International Ratio 1.2 (0.8-1.1) Medications Current Medications Sodium Chloride 1,000 ml @ 1,000 mls/hr 1X ONCE IV Last administered on 00:54; Start 12/11/16 at 01:00; Stop 12/11/16 at 01:59; Status DC Sodium Chloride 1,000 ml @ 125 mls/hr Q8H IV Last administered on 12/11/16 21: 04; Start 12/11/16 at 03:12; Stop 12/12/16 at 03:11; Status DC Acetaminophen (Tylenol) 650 mg PRN Q4HRS PRN PO FEVER Last administered on 12/12 00:50; Start 12/11/16 at 03:15; Stop 12/12/16 at 03:14; Status DC Ondansetron HCl (Zofran) 4 mg PRN Q6HRS PRN IV NAUSEA/VOMITING Last administered on 12/11/16 09:24; Start 12/11/16 at 07:30 Acetaminophen/ Codeine Phosphate (Tylenol #3) 1 tab PRN Q8HRS PRN PO MODERATE - SEVERE PAIN Last administered on 12/12/16 08:39; Start 12/11/16 at 12:45 Cyclobenzaprine HCl (Flexeril) 10 mg TID PRN PRN PO MILD PAIN; Start 12/11/16 at 12:45 Prednisone (Prednisone) 10 mg DAILY PO Last administered on 12/12/16 08:31; Start 12/11/16 at 13:00 Sennosides (Senna) 8.6 mg BID PO Last administered on 12/12/16 08:31; Start at 21:00 Bumetanide (Bumex) 1 mg DAILY PO ; Start 12/11/16 at 13:00; Stop 12/11/16 at 13:00 ; Status DC Vitamin D (Vitamin D3) 2,000 unit DAILY PO Last administered on 12/12/16 08:31 ; Start 12/11/16 at 13:00 Magnesium Oxide (Magnesium Oxide) 400 mg DAILY PO Last administered on 08:31; Start 12/11/16 at 13:00 Potassium Chloride (Klor-Con) 40 meq DAILYWBKFT PO Last administered on 08:31; Start 12/11/16 at 13:00 Bumetanide (Bumex) 2 mg DAILY PO Last administered on 12/12/16 08:31; Start at 13:00 Aminocaproic Acid (Amicar) 1,000 mg Q6HRS PO Last administered on 12/12/16 11: 58; Start 12/12/16 at 07:00 Potassium Chloride (Klor-Con) 40 meq 1X ONCE PO Last administered on 11:59; Start 12/12/16 at 11:45; Stop 12/12/16 at 11:46; Status DC Acetaminophen (Tylenol) 500 mg 1X ONCE PO Last administered on 12/12/16 12:56 ; Start 12/12/16 at 13:00; Stop 12/12/16 at 13:01; Status DC Active Scripts Active Reported Dhea (Prasterone (Dhea)) 25 Mg Capsule 25 Mg PO Magnesium (Magnesium Oxide) 400 Mg Capsule 1 Cap PO DAILY Senna (Sennosides) 8.6 Mg Tablet 8.6 Mg PO BID Vitamin D (Cholecalciferol (Vitamin D3)) 2,000 Unit Capsule 1 Cap PO DAILY Bumetanide 2 Mg Tablet 1 Tab PO DAILY Prednisone 10 Mg Tablet 10 Mg PO DAILY Cyclobenzaprine Hcl 10 Mg Tablet 1 Tab PO TID PRN PRN Potassium Chloride 20 Meq Tablet.er 40 Meq PO DAILY Tylenol With Codeine #3 Tablet (Acetaminophen/Codeine Phosphate) 1 Each Tablet 1 Tab PO PRN Q8HRS PRN Vitals/I & O Vital Sign - Last 24 Hours 12/11/16 12/11/16 12/11/16 12/11/16 19:15 20:05 21:04 22:05 Temp 98.7 98.7 Pulse 76 Resp 18 18 18 B/P (MAP) 141/69 (93) Pulse Ox 96 96 96 O2 Delivery Room Air Room Air Room Air 12/11/16 12/12/16 12/12/16 12/12/16 23:22 03:12 07:13 08:20 Temp 99.1 98.9 98.1 99.1 98.9 98.1 Pulse 88 63 66 Resp 20 16 18 B/P (MAP) 128/69 (88) 125/70 (88) 120/57 (78) Pulse Ox 96 97 100 O2 Delivery Room Air Room Air Room Air Room Air 12/12/16 12/12/16 12/12/16 12/12/16 08:39 09:54 10:10 10:14 Temp 98.1 98.1 98.1 98.1 Pulse 68 56 Resp 16 16 B/P (MAP) 132/46 (74) 124/62 (82) 124/62 Pulse Ox 96 O2 Delivery Room Air Room Air 12/12/16 12/12/16 12/12/16 12/12/16 10:29 10:57 11:25 12:25 Temp 98.3 98.3 98.6 98.3 98.3 98.6 Pulse 66 66 67 Resp 16 18 18 B/P (MAP) 125/64 131/77 (95) 117/55 (75) Pulse Ox 97 96 O2 Delivery Room Air Room Air Room Air 12/12/16 13:30 Temp 98.4 98.4 Pulse 63 Resp 16 B/P (MAP) 121/60 Intake and Output 12/11/16 12/11/16 12/12/16 15:00 23:00 07:00 Intake Total 2890 ml Balance 2890 ml SHELBI ESTEVEZ MD Dec 12, 2016 15:22
[2016-12-13 03:00] VITALS: BP 112/50
[2016-12-13 04:27] LABS: BASO % 1 % (0-3); EOS % 3 % (0-3); HEMATOCRIT 24.2 % (36.0-47.0); HEMOGLOBIN 8.1 g/dL (12.0-15.5); LYMPH % 46 % (24-48); MEAN CORPUSCULAR HEMOGLOBIN 32 pg (25-35); MEAN CORPUSCULAR HGB CONC 33 g/dL (31-37); MEAN CORPUSCULAR VOLUME 97 fL (79-100); MONO % 17 % (0-9); NEUT % 34 % (31-73); PLATELET COUNT 70 x10^3/uL (140-400); RED CELL DISTRIBUTION WIDTH 22.6 % (11.5-14.5); WHITE BLOOD COUNT 6.7 x10^3/uL (4.0-11.0)
[2016-12-13 04:57] LABS: ALBUMIN 2.8 g/dL (3.4-5.0); ALBUMIN/GLOBULIN RATIO 0.8 (1.0-1.7); CALCIUM 8.8 mg/dL (8.5-10.1); CREATININE 0.9 mg/dL (0.6-1.0); GFR 68.3; POTASSIUM 3.2 mmol/L (3.5-5.1); TOTAL PROTEIN 6.5 g/dL (6.4-8.2)
[2016-12-13] MEDS: AMINOCAPROIC ACID 500 MG TABLET. PO SCH (06:19)
[2016-12-13 07:00] VITALS: BP 120/53
--- NOTE | 2016-12-13 08:24 | PDOC ---
Subjective: Subjective: Onc f/u- Cytopenias No gingival bleeding No worsening bruises Objective: Vital Signs: Vital Signs Date Time Temp Pulse Resp B/P (MAP) Pulse Ox O2 Delivery O2 Flow Rate FiO2 12/13/16 07:00 97.7 68 18 120/53 (75) 97 Room Air 97.7 Physical Exam: Extremities: No edema General: Alert, Oriented X3, Cooperative, No acute distress Lungs: Other (no respiratory distress) Psych/Mental Status: Mental status NL, Mood NL Skin: Other (no significant bruising) Labs/Imaging: CBC reviewed, hgb 6.2 --> 8.1 plt stable at 70 [facility] records reviewed, baseline labs since 2008 reviewed Assessment/Plan A/P: 1. Chronic thrombocytopenia (baseline 40- 70), normocytic anemia (hgb ~ 9) attributing cause to triple X syndrome, possible contribution from lupus as well. S/p PRBC 12/12, plt /9 - Stable today 2. Tooth extraction 12/07 Plan: 1. DC'ed amicar. 2. Recommend heme visit in future preoperatively. Generally would recommend plt > 50 for any procedures, sometimes higher depending on procedure. May need outpt plt transfusions preoperatively and consideration of amicar or other ppx measures to avoid ongoing bleeding. She has contact info for Dr. Maradiaga and myself. Ok to DC from heme standpoint. ADEOLA BENITO DO Dec 13, 2016 08:24
[2016-12-13] MEDS ORDERED: POTASSIUM CHLORIDE 20 MEQ TABLET.ER. PO ONE (09:00)
[2016-12-13] MEDS: POTASSIUM CHLORIDE 20 MEQ TABLET.ER. PO SCH (09:07)
[2016-12-13] MEDS: CHOLECALCIFEROL (VITAMIN D3) 1,000 UNIT TABLET PO SCH (09:08)
[2016-12-13] MEDS: BUMETANIDE 1 MG TABLET. PO SCH (09:08)
[2016-12-13] MEDS: SENNOSIDES 8.6 MG TABLET PO SCH (09:08)
[2016-12-13] MEDS: predniSONE 10 MG TABLET PO SCH (09:08)
[2016-12-13] MEDS: MAGNESIUM OXIDE 400 MG TABLET PO SCH (09:08)
== END 2016-12-13 09:40 | disposition home or self-care (01) | DRG 813 ==
LOC: ER 23:25 → 4 NORTH 12-11 02:29
PROVIDERS: ADMIT Internal Medicine; ATTEND Internal Medicine
PROC: 30233R1 Transfusion of Nonautologous Platelets into Peripheral Vein, Percutaneous Approach (ICD-10-PCS; principal; 2016-12-11)
PROC: 30233N1 Transfusion of Nonautologous Red Blood Cells into Peripheral Vein, Percutaneous Approach (ICD-10-PCS; 2016-12-11)
DX: D69.6 Thrombocytopenia, unspecified (principal); D62 Acute posthemorrhagic anemia; K91.841 Postprocedural hemorrhage of a digestive system organ or structure following other procedure; M79.7 Fibromyalgia; Z86.2 Personal history of diseases of the blood and blood-forming organs and certain disorders involving the immune mechanism; Z88.8 Allergy status to other drugs, medicaments and biological substances; Z91.02 Food additives allergy status; Z88.5 Allergy status to narcotic agent; Z91.010 Allergy to peanuts; M32.9 Systemic lupus erythematosus, unspecified; K08.409 Partial loss of teeth, unspecified cause, unspecified class; Q97.0 Karyotype 47, XXX
CPT/HCPCS: 36415; 80048; 80053; 85007; 85014; 85018; 85027; 85610; 85730; 86850; 86900; 86901; 86920; 96360; J2405; J7030; J7512; P9016; P9035; 99285-25